=== PATIENT | male | born 1985 | race Caucasian/White ===

== ENCOUNTER 2018-07-18 17:33 | Emergency (ER) | payer SELFPAY ==
[2018-07-18] MEDS ORDERED: HYDROcodone/Acetaminophen 7.5/325 mg Tablet ONE (18:00)
== END 2018-07-18 18:58 | disposition home or self-care (01) ==
LOC: ERS 17:33
DX: L03.116 Cellulitis of left lower limb (principal); F17.210 Nicotine dependence, cigarettes, uncomplicated
CPT/HCPCS: 96372; J3490

== ENCOUNTER 2018-07-21 03:03 | Emergency (ER) | payer SELFPAY ==
[2018-07-21 03:37] LABS: #Eosinphils 0.2 thou/uL (0.0-0.7); #Lymphocytes 1.2 thou/uL (1.20-3.40); #Monocytes 0.5 thou/uL (0.11-0.59); #Neutrophils 4.9 thou/uL (1.40-6.50); %Basophils 0.4 % (0.0-1.0); %Eosinophils 3.1 % (0.0-10.0); %Lymphocytes 17.6 % (21.0-51.0); %Neutrophils 71.8 % (42.0-75.0); Hemoglobin 16.1 g/dL (14.0-18.0); Mean Corpuscular HGB CONC 32.7 g/dL (32.0-36.0); Mean Corpuscular Hemoglobin 30.5 pg (27.0-31.0); Mean Platelet Volume 7.5 fL (7.4-10.4); Platelet Count 297 thou/uL (130-400); RBC Distribution Width 11.3 % (11.5-14.5); Red Blood Cell (RBC) Count 5.28 mill/uL (4.70-6.10); White Blood Cell (WBC) Count 6.8 thou/uL (4.8-10.8)
[2018-07-21 03:57] LABS: ALT (SGPT) 57 U/L (8-55); AST (SGOT) 35 U/L (5-34); Albumin 4.3 g/dL (3.5-5.0); Alkaline Phosphatase 52 U/L (40-150); Anion Gap 12 mmol/L (10-20); BUN (Urea Nitrogen) 17 mg/dL (8.9-20.6); Bilirubin, Total 0.3 mg/dL (0.2-1.2); Calc. Creatinine Clearance 0 mL/min (70-130); Calcium 10.3 mg/dL (7.8-10.44); Carbon Dioxide 28 mmol/L (22-29); Chloride 102 mmol/L (98-107); Estimated GFR-MDRD 88; Globulin 3.2 g/dL (2.4-3.5); Glucose 106 mg/dL (70-105); Potassium 3.9 mmol/L (3.5-5.1); Protein, Total 7.5 g/dL (6.0-8.3); Sodium 138 mmol/L (136-145)
[2018-07-21] MEDS ORDERED: Adacel (T-DAP) 0.5 ML SYRINGE ONE (05:25)
--- NOTE | 2018-07-21 08:30 | RAD ---
FRONTAL AND LATERAL IMAGING LEFT TIBIA AND FIBULA: DATE: 07/21/2018. COMPARISON: None. HISTORY: Cellulitis. FINDINGS: No radiopaque foreign body or subcutaneous gas. No displaced fracture or evidence of dislocation see n. IMPRESSION: No acute osseous abnormality. POS: [facility]
--- NOTE | 2018-07-21 08:32 | RAD ---
LEFT KNEE 4 VIEWS: DATE: 07/21/2018. COMPARISON: None. HISTORY: Cellulitis. FINDINGS: No knee joint effusion, fracture, or evidence of dislocation. No radiopaque foreign body or subcutan eous gas. IMPRESSION: No acute findings. POS: [facility]
== END 2018-07-21 05:37 | disposition home or self-care (01) ==
LOC: ERS 03:03
DX: L03.116 Cellulitis of left lower limb (principal); F17.210 Nicotine dependence, cigarettes, uncomplicated; Z79.899 Other long term (current) drug therapy
CPT/HCPCS: 36415; 80053; 82550; 83605; 85025; 87040; 90471; 90715; 93005; 96365; J3370

== ENCOUNTER 2019-05-25 04:31 | Emergency (ER) | payer SELFPAY ==
[2019-05-25 05:15] LABS: Bacteria/HPF None Seen HPF (None Seen); Bilirubin Negative (Negative); Blood, Urine Negative (Negative); Clarity Turbid (Clear); Glucose, Urine (Dipstick) Normal (Negative); Leukocyte 500 Leu/uL (Negative); Nitrite Negative (Negative); Protein, Urine (Dipstick) Negative (Neg-Trace); Squamous Epithelial None Seen HPF (0-3); Urobilinogen Normal mg/dL (Less than 2); WBC/HPF Greater than 50 HPF (0-3)
[2019-05-25] MEDS ORDERED: Sterile Water 10 ML ONE (05:17)
[2019-05-25] MEDS ORDERED: cefTRIAXone\\ROCEPHIN 250 MG VIAL ONE (05:17)
[2019-05-25] MEDS ORDERED: Azithromycin 250 MG TAB ONE (05:17)
[2019-05-26 06:28] LABS: Chlam.trachomatis by PCR,Urine Not Detected (NotDetected)
== END 2019-05-25 05:42 | disposition home or self-care (01) ==
LOC: ERS 04:31
DX: N34.2 Other urethritis (principal); F17.210 Nicotine dependence, cigarettes, uncomplicated
CPT/HCPCS: 81003; 81015; 87491; 87591; 96372; 99283; J0696

== ENCOUNTER 2021-02-09 11:24 | Emergency (ER) | payer SELFPAY ==
[2021-02-09] MEDS ORDERED: Ketorolac Tromethamine 30 MG/ML VIAL ONE (14:02)
== END 2021-02-09 14:10 | disposition home or self-care (01) ==
LOC: ERS 11:24
DX: R07.89 Other chest pain (principal); K02.9 Dental caries, unspecified; I10 Essential (primary) hypertension; F17.210 Nicotine dependence, cigarettes, uncomplicated
CPT/HCPCS: 93005; 96372; J1885

== ENCOUNTER 2022-04-10 10:24 | Emergency (ER) | payer OTHER, SELFPAY ==
[2022-04-10] MEDS ORDERED: Ibuprofen 800 MG TAB ONE (11:14)
== END 2022-04-10 12:05 | disposition home or self-care (01) ==
LOC: ERS 10:24
DX: S93.402A Sprain of unspecified ligament of left ankle, initial encounter (principal); I10 Essential (primary) hypertension; F17.290 Nicotine dependence, other tobacco product, uncomplicated; W55.29XA Other contact with cow, initial encounter

== ENCOUNTER 2023-02-04 19:34 | Emergency (ER) | payer OTHER ==
[2023-02-04] MEDS ORDERED: Morphine 2 MG/ML VIAL ONE (20:43)
[2023-02-04] MEDS ORDERED: Ketorolac Tromethamine 30 MG/ML VIAL ONE (20:43)
[2023-02-04] MEDS ORDERED: Morphine 4 MG/ML VIAL ONE (20:43)
[2023-02-04] MEDS ORDERED: Ondansetron PF 4 MG/2 ML Vial ONE (20:43)
== END 2023-02-04 22:30 | disposition home or self-care (01) ==
LOC: ERS 19:34
DX: M54.50 Low back pain, unspecified (principal); R10.9 Unspecified abdominal pain; F17.290 Nicotine dependence, other tobacco product, uncomplicated; I10 Essential (primary) hypertension
CPT/HCPCS: 96374; 96375; J1885; J2270; J2272; J2405

== ENCOUNTER 2023-02-27 13:46 | Emergency (ER) | payer OTHER | END 2023-02-27 14:48 | disposition left against medical advice (07) | LOC: ERS 13:46 | DX: Z53.21 Procedure and treatment not carried out due to patient leaving prior to being seen by health care provider (principal) ==

== ENCOUNTER 2023-11-20 20:40 | Emergency (ER) | payer OTHER ==
[2023-11-20 21:58] LABS: #Basophils 0.06 10x3/uL (0.0-0.2); %Eosinophils 3.9 % (0.0-10.0); %Monocytes 7.5 % (0.0-10.0); %Neutrophils 57.4 % (42.0-75.0); Hematocrit 49.5 % (42.0-52.0); Hemoglobin 17.2 g/dL (14.0-18.0); Mean Corpuscular HGB CONC 34.7 g/dL (32.0-36.0); Mean Corpuscular Hemoglobin 30.3 pg (27.0-31.0); Mean Corpuscular Volume 87.1 fL (78.0-98.0); Mean Platelet Volume 9.4 fL (7.4-10.4); Platelet Count 342 10x3/uL (130-400); Red Blood Cell (RBC) Count 5.68 mill/uL (4.70-6.10)
[2023-11-20 22:26] LABS: ALT (SGPT) 38 U/L (8-55); AST (SGOT) 25 U/L (5-34); Albumin 4.1 g/dL (3.5-5.0); Alkaline Phosphatase 54 U/L (40-110); Anion Gap 15 mmol/L (10-20); BUN (Urea Nitrogen) 13 mg/dL (8.9-20.6); Bilirubin, Total 0.6 mg/dL (0.2-1.2); Calc. Creatinine Clearance 0 mL/min (70-130); Calcium 10.6 mg/dL (7.8-10.44); Carbon Dioxide 28 mmol/L (22-29); Chloride 103 mmol/L (98-107); Estimated GFR 79; Globulin 3.5 g/dL (2.4-3.5); Glucose 86 mg/dL (70-105); Potassium 4.2 mmol/L (3.5-5.1); Protein, Total 7.6 g/dL (6.0-8.3); Sodium 142 mmol/L (136-145)
== END 2023-11-20 22:22 | disposition left against medical advice (07) ==
LOC: ERS 20:40
DX: Z53.21 Procedure and treatment not carried out due to patient leaving prior to being seen by health care provider (principal)
CPT/HCPCS: 36415; 80053; 85025

== ENCOUNTER 2024-04-09 10:28 | Emergency (ER) | payer OTHER ==
[2024-04-09 10:57] LABS: #Basophils 0.05 10x3/uL (0.0-0.2); %Eosinophils 4.8 % (0.0-10.0); %Lymphocytes 29.2 % (21.0-51.0); %Monocytes 9.1 % (0.0-10.0); %Neutrophils 55.7 % (42.0-75.0); Hematocrit 50.7 % (42.0-52.0); Hemoglobin 17.4 g/dL (14.0-18.0); Mean Corpuscular HGB CONC 34.3 g/dL (32.0-36.0); Mean Corpuscular Volume 87.4 fL (78.0-98.0); Mean Platelet Volume 9.4 fL (7.4-10.4); Platelet Count 313 10x3/uL (130-400); RBC Distribution Width 12.1 % (11.5-14.5)
[2024-04-09 11:14] LABS: ALT (SGPT) 61 U/L (8-55); AST (SGOT) 30 U/L (5-34); Albumin 3.8 g/dL (3.5-5.0); Alkaline Phosphatase 59 U/L (40-110); Anion Gap 14 mmol/L (10-20); BUN (Urea Nitrogen) 13 mg/dL (8.9-20.6); Bilirubin, Total 0.5 mg/dL (0.2-1.2); CRP,High Sensitivity (Inhouse) 0.24 mg/dL (< or = 0.5); Calc. Creatinine Clearance 0 mL/min (70-130); Calcium 9.5 mg/dL (7.8-10.44); Carbon Dioxide 23 mmol/L (22-29); Chloride 105 mmol/L (98-107); Estimated GFR 93; Globulin 3.4 g/dL (2.4-3.5); Glucose 112 mg/dL (70-105); Potassium 3.9 mmol/L (3.5-5.1); Protein, Total 7.2 g/dL (6.0-8.3); Sodium 138 mmol/L (136-145)
== END 2024-04-09 13:57 | disposition left against medical advice (07) ==
LOC: ERS 10:28
DX: Z53.21 Procedure and treatment not carried out due to patient leaving prior to being seen by health care provider (principal)
CPT/HCPCS: 36415; 72131; 80053; 85025; 86141

== ENCOUNTER 2025-02-14 15:27 | Emergency (ER) | payer SELFPAY ==
[2025-02-14] MEDS ORDERED: Lidocaine 1% PF 5 ML VIAL ONE ×2 (17:24→18:06)
[2025-02-14] MEDS ORDERED: Ketorolac Tromethamine 30 MG (1 mL) VIAL ONE (18:39)
== END 2025-02-14 18:48 | disposition home or self-care (01) ==
LOC: ERS 15:27
DX: S61.011A Laceration without foreign body of right thumb without damage to nail, initial encounter (principal); F17.290 Nicotine dependence, other tobacco product, uncomplicated; W25.XXXA Contact with sharp glass, initial encounter
CPT/HCPCS: 99282; J1885

== ENCOUNTER 2025-04-03 12:54 | Emergency (ER) | payer SELFPAY ==
[2025-04-03 13:15] LABS: #Basophils 0.06 10x3/uL (0.0-0.2); #Eosinophils 0.26 10x3/uL (0.0-0.7); #Monocytes 0.34 10x3/uL (0.11-0.59); #Neutrophils 2.39 10x3/uL (1.40-6.50); %Basophils 1.4 % (0.0-1.0); %Eosinophils 6.1 % (0.0-10.0); %Lymphocytes 28.2 % (21.0-51.0); %Monocytes 8.0 % (0.0-10.0); %Neutrophils 56.1 % (42.0-75.0); Hematocrit 45.9 % (42.0-52.0); Hemoglobin 15.3 g/dL (14.0-18.0); Mean Corpuscular Hemoglobin 29.4 pg (27.0-31.0); Mean Corpuscular Volume 88.1 fL (78.0-98.0); Platelet Count 307 10x3/uL (130-400); Red Blood Cell (RBC) Count 5.21 mill/uL (4.70-6.10); White Blood Cell (WBC) Count 4.26 10x3/uL (4.8-10.8)
[2025-04-03 13:40] LABS: ALT (SGPT) 70 U/L (Less than 45); AST (SGOT) 36 U/L (11-34); Albumin 4.3 g/dL (3.1-4.5); Alkaline Phosphatase 59 U/L (40-110); Anion Gap 12 mmol/L (10-20); BUN (Urea Nitrogen) 17 mg/dL (8.9-20.6); Bilirubin, Total 0.4 mg/dL (0.3-1.2); Calc. Creatinine Clearance 0 mL/min (70-130); Calcium 9.6 mg/dL (7.8-10.44); Carbon Dioxide 26 mmol/L (22-29); Chloride 104 mmol/L (98-107); Globulin 3.1 g/dL (2.4-3.5); Glucose 87 mg/dL (70-105); Lipase 28 U/L (8-78); Potassium 4.0 mmol/L (3.5-5.1); Sodium 138 mmol/L (136-145)
== END 2025-04-03 14:25 | disposition home or self-care (01) ==
LOC: ERS 12:54
DX: K59.00 Constipation, unspecified (principal); F17.290 Nicotine dependence, other tobacco product, uncomplicated; X50.0XXA Overexertion from strenuous movement or load, initial encounter
CPT/HCPCS: 74177; 80053; 83690; 85025